=== PATIENT | female | born 1960 | race Caucasian/White ===

== ENCOUNTER 2024-04-11 13:07 | Emergency (ER) | payer MEDICAID ==
[~2024-04-11] VITALS: Ht 160 cm; Wt 90.7 kg
[2024-04-11 13:41] VITALS: BP 104/62; TEMP 98.3; O2SAT 97
== END 2024-04-11 15:17 | disposition home or self-care (01) ==
LOC: ER 13:09
DX: J30.9 Allergic rhinitis, unspecified (principal); I10 Essential (primary) hypertension; F41.9 Anxiety disorder, unspecified; E11.9 Type 2 diabetes mellitus without complications; F17.200 Nicotine dependence, unspecified, uncomplicated